=== PATIENT | female | born 1970 | race Caucasian/White ===

== ENCOUNTER 2017-01-31 12:29 | Day surgery (SDC) | payer OTHER ==
[~2017-01-31 12:29] MED LIST: BYSTOLIC5 MG PO
[2017-01-31 15:22] VITALS: BP 141/75; BMI 41.6
[2017-01-31] MEDS ORDERED: PERCOCET 10/3251 TA1 PO (18:20)
--- NOTE | 2017-01-31 19:10 | NUR ---
LEFT HAND PIV DC'D WITH TIP INTACT. PATIENT DRESSING IN PERSONAL CLOTHING WITH SPOUSE ASSISTANCE.
--- NOTE | 2017-01-31 20:10 | NUR ---
LEFT HAND PIV DC'D WITH TIP INTACT. PATIENT DRESSING IN PERSONAL CLOTHING WITH SPOUSE ASSISTANCE
--- NOTE | 2017-01-31 20:25 | NUR ---
DISCHARGE INSTRUCTIONS REVIEWED WITH PATIENT AND SPOUSE. DISCHARGED HOME VIA WHEELCHAIR TO PRIVATE VEHICLE WITH SPOUSE
--- NOTE | 2017-04-15 11:44 | OP ---
PATIENT NAME: JESS BELTRAN MEDICAL RECORD: [id number] :72 LOCATION:[facility] ADMISSION DATE: SURGEON: VIVIENNE HILLIARD MD DATE OF OPERATION: 01/31/2017 PREOPERATIVE DIAGNOSES: 1. Impingement syndrome of the right shoulder. 2. Acromioclavicular arthritis of the right shoulder. 3. Severe rotator cuff tendinosis with calcific tendinopathy and rotator cuff tearing. POSTOPERATIVE DIAGNOSES: 1. Impingement syndrome of the right shoulder. 2. Acromioclavicular arthritis of the right shoulder. 3. Severe rotator cuff tendinosis with calcific tendinopathy and rotator cuff tearing. PROCEDURES: 1. Arthroscopic rotator cuff repair. 2. Arthroscopic subacromial decompression with acromioplasty and bursectomy. 3. Arthroscopic distal clavicle excision. SURGEON: Vivienne Hilliard MD ANESTHESIA: General. INTRAOPERATIVE COMPLICATIONS: None. SUMMARY OF PATHOLOGIC FINDINGS: The patient had a calcific tendinitis of the supraspinatus tendinous footprint that actually has eroded in to the bone. Arthroscopic photos were taken of this leaving behind the rotator cuff tear after it was excised, type 3 acromion with coracoacromial ligament hypertrophy and type 4 arthritis of the AC joint with downward sloping osteophytes. OPERATIVE SUMMARY IN DETAIL: After obtaining the appropriate preoperative orthopedic surgery consent as well as anesthetic consultation, evaluation and clearance, the patient was brought to the operating room and placed on the operating table in supine position. After adequate general endotracheal anesthesia was administered, the patient was placed in left lateral decubitus position. All pressure points were well padded to include down leg peroneal pad as well as axillary roll. The patient was held firmly to the operating table using the vacuum pack suction system. Right upper extremity and shoulder were then prepped and draped in a routine sterile fashion. The arm was held in the Arthrex traction boom at 30 degrees of forward flexion, 30 degrees of abduction with 10 pounds of traction laterally. Arthroscopy was established in the glenohumeral joint from a posterior portal. Anterior portal was established in the anterior safe interval. Diagnostic arthroscopy showed a relatively pristine articular aspect of the rotator cuff as well as labral and biceps tendon. Attention was then turned to the subacromial space. In the subacromial space, substantial amount of bursitis was encountered. This was taken down with a resector. The Ransom tissue ablation system was utilized to denude the undersurface of the acromion of all soft tissue elements. A 5-0 barrel bur were used to perform acromioplasty at the level of acromioclavicular joint and then through a separate arthroscopic portal anteriorly under direct visualization, a 5-0 barrel bur was used to perform acromioplasty at the level of OPERATIVE REPORT [id number] JESS BELTRAN acromioclavicular joint. Next a 5.0 barrel bur was used to debride 1 cm of the distal clavicle through a separate incision including inferior osteophyte. Lastly, attention was then turned to the large area of calcific tendinopathy. Combination of a resector as well as a ring curette and a bur were utilized to remove all of the area of calcific tendinopathy that it actually gone approximately 5-6 cm into the bone. This was photographed intraoperatively and then removed in its entirety and photographed again after rotator cuff repair. Rotator cuff was repaired using a single FiberTape in an inverted mattress style fashion and anchored laterally in the defect with a 5.5 SwiveLock from Arthrex. Having completed this, arthroscopy portals were closed in routine interrupted fashion using 4-0 Prolene. Sterile dressings were applied. The patient was awakened and taken to the recovery room in stable condition. All final needle and sponge counts were correct. TRANSINT:[id number] Voice Confirmation ID: [id number] DOCUMENT ID: [id number] 04/15/2017 Edited per lennie Mckeon. ARMNIDA ARIAS, VIVIENNE WATKINS at 1144 CC: [id number] DICTATION DATE: 01/31/171822 GIFTED PROGRAM TEACHER: 01/31/172028 [facility] 01/31/17 [id number] [place] [address]
== END 2017-01-31 20:28 | disposition home or self-care (01) ==
LOC: D.OPS 12:29 → D.PAN 15:00 → D.OPS 15:00
DX: M75.101 Unspecified rotator cuff tear or rupture of right shoulder, not specified as traumatic (principal); M19.011 Primary osteoarthritis, right shoulder; M75.41 Impingement syndrome of right shoulder; M25.511 Pain in right shoulder; M75.31 Calcific tendinitis of right shoulder; Z01.812 Encounter for preprocedural laboratory examination

== ENCOUNTER 2017-02-11 22:36 | Emergency (ER) | payer OTHER ==
[~2017-02-11 22:36] MED LIST changes: +PERCOCET 10/3251 TA1 PO
== END 2017-02-11 23:56 | disposition home or self-care (01) ==
LOC: D.ER 22:36
DX: J06.9 Acute upper respiratory infection, unspecified (principal); I10 Essential (primary) hypertension

== ENCOUNTER 2017-05-11 17:50 | Emergency (ER) | payer OTHER | END 2017-05-11 19:45 | disposition home or self-care (01) | LOC: D.ER 17:50 | DX: S46.911A Strain of unspecified muscle, fascia and tendon at shoulder and upper arm level, right arm, initial encounter (principal); X58.XXXA Exposure to other specified factors, initial encounter; Y93.89 Activity, other specified; Y92.89 Other specified places as the place of occurrence of the external cause; M62.838 Other muscle spasm ==

== ENCOUNTER 2017-11-01 09:26 | Day surgery (SDC) | payer OTHER ==
[2017-10-31 16:05] LABS: HEMATOCRIT 39.4 % (36.0-48.0); HEMOGLOBIN 12.8 g/dL (12-16); MCH 29.4 pg (26.0-34.0); MCHC 32.5 g/dL (31.0-37.0); MCV 90.4 fL (80.0-100.0); MEAN PLATELET VOLUME 11.4 fL (7.4-10.4); RBC 4.36 10x6/uL (4.00-5.40); RDW 12.4 % (11.5-14.5); WBC 11.2 10x3/uL (4.8-10.8)
[~2017-11-01] VITALS: Ht 162.6 cm; Wt 122.7 kg
--- NOTE | ~2017-11-01 | OP ---
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 PROCEDURE: Anterior cervical diskectomy and fusion with resection of osteophytes and disk herniation at C5-C6, anterior cervical plate and screws at C5-C6, separate PEEK interbody cage with bone stem cell allograft. SURGEON: Sofia Shea MD DESCRIPTION OF TECHNIQUE: After induction of general endotracheal anesthesia, the patient was positioned supine on the operating table. Neck was prepped and draped in usual sterile fashion. Fluoroscopic x-ray and freer localized the C5-C6 interspace. A transverse skin incision was carried out from the midline to the sternocleidomastoid muscle. The platysma was divided with Bovie cautery. Using blunt and sharp dissection with Metzenbaum scissors, I proceeded in the avascular plane medial to the carotid sheath. The C5-C6 interspace was identified with fluoroscopic x-ray and spinal needle. The longus colli muscles were elevated from bodies of C5 and C6. Windham distracting pins were placed at the bodies of C5 and C6. Disk space was incised with a #11 blade and disk material was removed with pituitary rongeurs and curettes. A Midas Israel drill and microscope used to remove osteophytes posteriorly. The posterior longitudinal ligament was removed with Cloward rongeurs. The dura was decompressed within the central canal as well as the foramina on both sides. A PEEK interbody cage was placed in the disk space under distraction. Prior to this, it was filled with bone stem cell allograft. A separate anterior cervical plate and screws was used to span the C5-C6 interspace. Locking cams were tightened down over the screw heads. Meticulous hemostasis was maintained throughout the wound. The wound was irrigated with copious amounts of Ancef irrigant solution. The platysma and subdermal layer closed with interrupted 3-0 Vicryl suture. The skin was reapproximated with Steri-Strips and benzoin. A sterile dressing was applied to the wound. The patient was awakened in good condition, taken to recovery. All counts were reported as correct. Estimated blood loss was minimal. TRANSINT:[id number] Voice Confirmation ID: [id number] DOCUMENT ID: [id number] SOFIA SHEA MD at 1844 CC: [id number] DICTATION DATE: 11/02/17 0125 EQUAL OPPORTUNITY DIRECTOR: 11/02/17 0817 [facility] 11/02/17 [address] [id number]
[~2017-11-01 09:26] MED LIST changes: +ACETAMINOPHEN500 M1 PO; +ALEVE220 MG PO; +IBUPROFEN800 MG
[2017-11-01 10:10] VITALS: BP 147/94; BMI 29.2
[2017-11-02 04:05] VITALS: BP 151/76
[2017-11-02 04:10] VITALS: BP 167/93; Ht 162.6 cm; Wt 122.7 kg
[2017-11-02 07:52] VITALS: BP 168/75
[2017-11-02 12:24] VITALS: BP 139/70
[2017-11-02 15:32] VITALS: BP 120/58
== END 2017-11-02 21:15 | disposition home or self-care (01) ==
LOC: OBSVTIME → D.OPS 09:26 → D.PAN 11:30 → OBSVTIME 11-02 01:16 → D.MS 11-02 01:16 → D.OPS 11-02 01:16 → D.MS 11-02 01:16 → D.OPS 11-02 21:15 → D.MS 11-02 21:15
PROVIDERS: Anesthesiology
DX: M50.122 Cervical disc disorder at C5-C6 level with radiculopathy (principal); M25.78 Osteophyte, vertebrae; Z01.812 Encounter for preprocedural laboratory examination

== ENCOUNTER 2018-02-16 05:20 | Day surgery (SDC) | payer OTHER ==
[2018-02-15 13:01] LABS: HEMATOCRIT 39.6 % (36.0-48.0); HEMOGLOBIN 12.7 g/dL (12-16); MCH 28.2 pg (26.0-34.0); MCHC 32.1 g/dL (31.0-37.0); MCV 87.8 fL (80.0-100.0); MEAN PLATELET VOLUME 11.5 fL (7.4-10.4); RBC 4.51 10x6/uL (4.00-5.40); RDW 13.1 % (11.5-14.5); WBC 8.3 10x3/uL (4.8-10.8)
[~2018-02-16] VITALS: Ht 162.6 cm; Wt 117.9 kg
--- NOTE | ~2018-02-16 | OP ---
PATIENT NAME: JESS BELTRAN MEDICAL RECORD: [id number] :72 LOCATION:[facility] ADMISSION DATE: SURGEON: VIVIENNE HILLIARD MD DATE OF OPERATION: 02/16/2018 PREOPERATIVE DIAGNOSES: Impingement syndrome of the left shoulder with biceps tendinitis, acromioclavicular arthritis as well as calcific tendinitis. POSTOPERATIVE DIAGNOSES: Impingement syndrome of the left shoulder with biceps tendinitis, acromioclavicular arthritis as well as calcific tendinitis. PROCEDURES: 1. Left shoulder arthroscopy with biceps tenotomy. 2. Distal clavicle excision done through separate incision - 1 cm. 3. Subacromial decompression with acromioplasty and bursectomy. 4. Debridement of calcific tendinopathy. OPERATIVE SUMMARY IN DETAIL: After obtaining the appropriate preoperative orthopedic surgery consent as well as anesthetic consultation, evaluation and clearance, the patient was brought to the operating room and placed on the operating table in supine position. After general laryngeal mask airway was administered, the patient was placed in a right lateral decubitus position. All pressure points were well padded to include the down leg peroneal pad as well as axillary roll. The patient was held firmly to the operating table using the vacuum pack suction system. The patient's left upper extremity and shoulder were then prepped and draped in routine sterile fashion. The arm was held on the Arthrex traction boom in 30 degrees of forward flexion, 30 degrees of abduction, and 10 pounds of traction laterally. Arthroscopy was established in the glenohumeral joint from the posterior portal. Anterior portal was established in the anterior safe interval. Diagnostic arthroscopy showed the patient to have substantial biceps tendinitis with some rotator cuff undersurface tearing, but very mild at best. Clayton tissue ablation system was brought in to release the biceps tendon at the bicipital labral junction. Having completed this, attention was turned to the subacromial space. While in subacromial space, Clayton tissue ablation system was utilized to denude the undersurface of the acromion of all soft tissue elements and release the coracoacromial ligament. At this point, a 5.0 barrel bur was then used to perform acromioplasty at the level of acromioclavicular joint. Then through separate anterior portal under arthroscopic visualization, distal clavicle excision was performed for 1 cm. Having completed this, all residual subacromial bursa was taken down anteriorly, laterally, posteriorly, and inferiorly. Rotator cuff attritional changes were noted; however, in the posterior aspect of the shoulder, a small area of superficial calcific tendinopathy was noted. This was gently debrided not leaving a void big enough in the rotator cuff to require formal repair. Having completed this, arthroscopy portals were closed in routine interrupted fashion using 4-0 Prolene. Sterile dressings were applied. The patient was awakened and taken to recovery room in stable condition. All final needle and sponge counts were correct. TRANSINT:[id number] Voice Confirmation ID: [id number] DOCUMENT ID: [id number] OPERATIVE REPORT [id number] JESS BELTRAN MD, VIVIENNE WATKINS at 0844 CC: [id number] DICTATION DATE: 02/17/18 1313 TRANSITION LEAD: 02/17/18 1331 [facility] 02/16/[address] [address]
[~2018-02-16 05:20] MED LIST changes: +DUEXIS 800-26.1 EACH PO
[2018-02-16 06:03] VITALS: BP 154/101; Ht 162.6 cm; Wt 117.9 kg
[2018-02-16] MEDS ORDERED: NORCO 10-325 TA1 TAB PO (08:50)
== END 2018-02-16 11:00 | disposition home or self-care (01) ==
LOC: D.OPS 05:20 → D.PAN 12:00 → D.OPS 12:00 → D.PAN 18:00 → D.OPS 18:15
PROVIDERS: Anesthesiology
DX: S43.421A Sprain of right rotator cuff capsule, initial encounter (principal); M75.21 Bicipital tendinitis, right shoulder; M75.01 Adhesive capsulitis of right shoulder; M13.811 Other specified arthritis, right shoulder

== ENCOUNTER → 2018-05-30 10:43 | Outpatient (CLI) | payer OTHER ==
[2018-02-16 06:03] VITALS: BMI 44.7
[~2018-05-30 10:43] MED LIST changes: +NORCO 10-325 TA1 TAB PO
== END | disposition home or self-care (01) ==
LOC: D.MRI 05-02 08:30
DX: M25.512 Pain in left shoulder (principal)

== ENCOUNTER 2018-07-06 07:00 | Day surgery (SDC) | payer OTHER ==
[2018-07-05 10:21] LABS: HEMATOCRIT 39.3 % (36.0-48.0); HEMOGLOBIN 12.7 g/dL (12-16); MCH 28.5 pg (26.0-34.0); MCHC 32.3 g/dL (31.0-37.0); MCV 88.3 fL (80.0-100.0); MEAN PLATELET VOLUME 11.6 fL (7.4-10.4); RBC 4.45 10x6/uL (4.00-5.40); RDW 13.2 % (11.5-14.5); WBC 7.8 10x3/uL (4.8-10.8)
[~2018-07-06] VITALS: Ht 162.6 cm; Wt 111.1 kg
[~2018-07-06 07:00] MED LIST changes: +DILAUDID4 MG PO
[2018-07-06] MEDS ORDERED: MULTIGEN FOLIC1 EACH PO (07:49)
[2018-07-06] MEDS ORDERED: OMEGA-3100 MG (07:49)
[2018-07-06 08:02] VITALS: Ht 162.6 cm; Wt 111.1 kg
[2018-07-06] MEDS ORDERED: HYDROCODON-ACE1 EA10 PO (09:53)
--- NOTE | 2018-07-06 10:42 | OP ---
PATIENT NAME: JESS BELTRAN MEDICAL RECORD: [id number] :72 LOCATION:[facility] ADMISSION DATE: SURGEON: VIVIENNE HILLIARD MD DATE OF OPERATION: 07/06/2018 PREOPERATIVE DIAGNOSIS: Acromioclavicular arthritis with severe pain. POSTOPERATIVE DIAGNOSIS: Acromioclavicular arthritis with severe pain. PROCEDURE: Open distal clavicle excision. SURGEON: Vivienne Hilliard MD ANESTHESIA: General. INTRAOPERATIVE COMPLICATIONS: None. SUMMARY OF PATHOLOGIC FINDINGS: The patient had residual acromioclavicular arthritis with what appeared to be residual calcific bodies in the previously partially resected AC joint. INDICATIONS: Ms. Beltran is a 47-year-old female, who previously had an arthroscopic subacromial decompression with distal clavicle excision. However, she had a recurrence of AC joint pain. Acromioclavicular injection gave her temporary relief, but returned. Thus, we scheduled her for open distal clavicle excision. OPERATION IN DETAIL: After obtaining the appropriate preoperative orthopedic surgery consent as well as anesthetic consultation, evaluation and clearance, the patient was brought to the operating room and placed on the operating table in supine position. After adequate general laryngeal mask airway was administered, the patient was placed in a beach chair position. All pressure points were well padded. She was held firmly to the operating table using the vacuum pack suction system. Right upper extremity and shoulder were then prepped and draped in routine sterile fashion. The AC joint was found with a spinal needle in this rather obese female. Incision was then taken down directly to the acromioclavicular joint. Dissection was carried out and then a 1-cm distal clavicle was excised in its entirety. Care was taken using rongeur to make sure all of the distal clavicle acromioclavicular area had been resected. Copious irrigation was then followed by closure with 2-0 Vicryl and subcuticular 3-0 Vicryl. Steri-Strips were applied. The patient was awakened and taken to recovery room in stable condition. All final needle and sponge counts were correct. TRANSINT:[id number] Voice Confirmation ID: [id number] DOCUMENT ID: [id number] VIVIENNE HILLIARD MD at 1042 CC: [id number] DICTATION DATE: 07/06/18 1005 TAIL SAWYER: 07/06/18 1015 [facility] [address] [id number]
== END 2018-07-06 12:30 | disposition home or self-care (01) ==
LOC: D.OPS 07:00 → D.PAN 12:15 → D.OPS 12:15
PROVIDERS: Anesthesiology; ATTEND Orthopaedic Surgery
DX: M13.811 Other specified arthritis, right shoulder (principal); Z01.812 Encounter for preprocedural laboratory examination

== ENCOUNTER 2019-10-04 05:05 | Day surgery (SDC) | payer OTHER ==
[2019-10-02 11:22] LABS: HEMATOCRIT 40.6 % (36.0-48.0); MCH 28.4 pg (26.0-34.0); MCV 88.8 fL (80.0-100.0); MEAN PLATELET VOLUME 10.5 fL (7.4-10.4); RBC 4.57 10x6/uL (4.00-5.40); RDW 12.4 % (11.5-14.5); WBC 7.2 10x3/uL (4.8-10.8)
[~2019-10-04] VITALS: Ht 162.6 cm; Wt 100.7 kg
[~2019-10-04 05:05] MED LIST changes: +HYDROCODON-ACE1 EA10 PO; +MULTIGEN FOLIC1 EACH PO; +OMEGA-3100 MG; +THEREMS-M1 TAB PO
[2019-10-04] MEDS ORDERED: ADIPEX-P37.5 M1 PO (05:48)
[2019-10-04 05:50] VITALS: BP 140/79; Ht 162.6 cm; Wt 100.7 kg
[2019-10-04] MEDS ORDERED: HYDROCODON-ACE1 EA10 PO (08:25)
--- NOTE | 2019-10-06 11:34 | OP ---
PATIENT NAME: JESS BELTRAN MEDICAL RECORD: [id number] :72 LOCATION:[facility] ADMISSION DATE: SURGEON: VIVIENNE HILLIARD MD DATE OF OPERATION: 10/04/2019 PREOPERATIVE DIAGNOSIS: Carpal tunnel syndrome of the right wrist. POSTOPERATIVE DIAGNOSIS: Carpal tunnel syndrome of the right wrist. PROCEDURE: Carpal tunnel release. SURGEON: Vivienne Hilliard MD FLOOR SANDING MACHINE OPERATOR: JUMANA Mathews INTRAOPERATIVE COMPLICATIONS: None. SUMMARY OF PATHOLOGIC FINDINGS: The patient had very dense tight transverse carpal ligament consistent with the patient's preoperative EMGs and NCVs as well as symptoms. OPERATIVE SUMMARY IN DETAIL: After obtaining the appropriate preoperative orthopedic surgery consent as well as anesthetic consultation, evaluation and clearance the patient was brought to the operating room and placed on the operating table in supine position. After adequate general laryngeal mask airway was administered, a tourniquet placed on the proximal aspect of the right upper extremity. Right upper extremity was then prepped and draped in routine sterile fashion. The arm was elevated and exsanguinated, tourniquet inflated to 250 mmHg. Middle palmar incision was made in line with the fourth metacarpal. This was taken down to the level of the distal aspect of the transverse carpal ligament, it was identified and incised. Median nerve was identified and then protected with a [place]ster. The entire transverse carpal ligament was incised under direct visualization using both a scalpel and a [place] light knife. After complete release had been achieved, the wound was irrigated and closed by JUMANA Mathews and infiltrated locally with 0.25% Marcaine plain. Sterile dressings were applied. Tourniquet was deflated. The patient was awakened and taken to the recovery room in stable condition. All final needle and sponge counts were correct. TRANSINT:[id number] Voice Confirmation ID: [id number] DOCUMENT ID: [id number] VIVIENNE HILLIARD MD at 1134 CC: [id number] DICTATION DATE: 10/05/19 1123 TUTOR COORDINATOR: 10/05/19 1728 [facility] 10/04/19 [place] [address]
== END 2019-10-04 09:09 | disposition home or self-care (01) ==
LOC: D.OPS 05:05 → D.PAN 10:15
PROVIDERS: Anesthesiology; ATTEND Orthopaedic Surgery
DX: G56.01 Carpal tunnel syndrome, right upper limb (principal)

== ENCOUNTER 2020-10-01 00:39 | Emergency (ER) | payer BC ==
[~2020-10-01] VITALS: Ht 162.6 cm; Wt 88.6 kg
[~2020-10-01 00:39] MED LIST changes: +ADIPEX-P37.5 M1 PO
[2020-10-01 00:49] VITALS: Ht 162.6 cm; Wt 88.6 kg
[2020-10-01 01:16] LABS: BASOPHILS 0.6 % (0-2); HEMATOCRIT 37.7 % (36.0-48.0); HEMOGLOBIN 12.3 g/dL (12-16); LYMPHOCYTES 35.3 % (15-50); MCH 28.3 pg (26.0-34.0); MCHC 32.5 g/dL (31.0-37.0); MEAN PLATELET VOLUME 11.4 fL (7.4-10.4); MONOCYTES 7.5 % (2-11); NEUTROPHILS 52.6 % (40-80); RBC 4.33 10x6/uL (4.00-5.40); RDW 13.3 % (11.5-14.5); WBC 9.3 10x3/uL (4.8-10.8)
[2020-10-01 01:18] LABS: PLATELET COUNT 269 10x3/uL (130-400)
[2020-10-01 01:23] LABS: CALC OSMOLALITY 286 mosm/kg (275-300); CALCIUM 8.9 mg/dL (8.5-10.1); CARBON DIOXIDE 30.2 mmol/L (21.0-32.0); CHLORIDE - SERUM 105 mmol/L (98-107); CREATININE - SERUM 0.6 mg/dL (0.6-1.3); GLUCOSE 99 mg/dL (74-106); POTASSIUM - SERUM 3.1 mmol/L (3.5-5.1); SODIUM 143 mmol/L (136-145); UREA NITROGEN 17 mg/dL (7-18); eGFR NON AFRICAN AMERICAN > 90 mL/min (90-120)
[2020-10-01 01:35] LABS: ALBUMIN 3.9 g/dL (3.4-5.0); ALKALINE PHOSPHATASE 68 U/L (30-120); ALT (SGPT) 21 U/L (10-68); BILIRUBIN - TOTAL 0.29 mg/dL (0.2-1.3); LIPASE 207 U/L (73-393); PRO BNP 179 pg/mL (0-125); PROTEIN - SERUM 7.4 g/dL (6.4-8.2); TROPONIN-I < 0.017 ng/mL (0.000-0.060)
[2020-10-01] MEDS ORDERED: OMEPRAZOLE20 M1 PO (02:28)
[2020-10-01 02:49] VITALS: BP 111/49
== END 2020-10-01 03:27 | disposition home or self-care (01) ==
LOC: D.ER 00:39
PROVIDERS: Family Medicine
DX: R07.9 Chest pain, unspecified (principal); M25.511 Pain in right shoulder; I10 Essential (primary) hypertension; K21.9 Gastro-esophageal reflux disease without esophagitis